=== PATIENT | male | born 1940 | race Caucasian/White ===

== ENCOUNTER 2016-08-10 09:08 | Observation (INO) | payer OTHER ==
[2016-08-10] MEDS ORDERED: NS 1,000 ML IV ONE (09:16)
[2016-08-10] MEDS ORDERED: diphenhydrAMINE 25 MG CAP PO ONE ×2 (09:16→09:35)
[2016-08-10] MEDS ORDERED: ASPIRIN EC 325 MG TAB PO ONE ×2 (09:16→09:35)
[2016-08-10] MEDS ORDERED: DIAZEPAM 5 MG TAB PO ONE (09:16)
[2016-08-10] MEDS ORDERED: FAMOTIDINE 20 MG TAB PO ONE (09:16)
--- NOTE | 2016-08-10 09:34 | CPEKG ---
Heart Rate: 61 RR Interval: 984 P-R Interval: 152 QRSD Interval: 88 QT Interval: 404 QTC Interval: 407 P [place]: 63 QRS [place]: 40 T Wave [place]: 42 EKG Severity - NORMAL ECG - EKG Impression: SINUS RHYTHM Electronically Signed By: Alex Brown 10-Aug-2016 17:39:55
[2016-08-10] MEDS ORDERED: DIAZEPAM 5 MG TAB ONE (09:35)
[2016-08-10] MEDS ORDERED: FAMOTIDINE 20 MG TAB ONE (09:35)
[2016-08-10 09:49] LABS: % IMMATURE GRANULYOCYTES 0.2 % (0.0-1.1); ABSOLUTE IMMATURE GRANULOCYTES 0.01 10^3/uL (0.00-0.10); ADD DIFF? NO; ADD MORPH? NO; ADD SCAN? NO; ATYPICAL LYMPHOCYTE FLAG 10 (0-99); FRAGMENT RBC FLAG 0 (0-99); HEMATOCRIT 44.9 % (40.0-51.0); HEMOGLOBIN 15.8 g/dL (13.7-17.5); LEFT SHIFT FLG 0 (0-99); LIPEMIA HEMOLYSIS FLAG 90 (0-99); MEAN CELL HEMOGLOBIN 32.3 pg (27.9-34.1); MEAN CELL HEMOGLOBIN CONCENTR. 35.2 g/dL (32.4-36.7); MEAN CELL VOLUME 91.8 fL (81.5-99.8); MEAN PLATELET VOLUME 10.9 fL (8.7-11.7); PLATELET CLUMPS FLAG 10 (0-99); PLATELET COUNT 207 10^3/uL (150-400); RED BLOOD CELL COUNT 4.89 10^6/uL (4.40-6.38); RED CELL DISTRIBUTION WIDTH 13.2 % (11.5-15.2)
[2016-08-10 09:57] LABS: INR 1.12 (0.83-1.16); PROTIME(PATIENT) 14.3 SEC (12.0-15.0)
[2016-08-10 10:21] LABS: ANION GAP 9 mEq/L (8-16); CALCIUM 8.7 mg/dL (8.5-10.4); CARBON DIOXIDE 26 mEq/l (22-31); CHLORIDE 103 mEq/L (97-110); CHOLESTEROL 175 mg/dL (140-220); CREATININE 0.8 mg/dL (0.7-1.3); GLOMERULAR FILTRATION RATE > 60; GLUCOSE 87 mg/dL (70-100); HIGH DENSITY LIPOPROTEIN 53 mg/dL (40-65); LDL/HDL RATIO 2.09 RATIO (1.00-3.64); LOW DENSITY LIPOPROTEIN 111 mg/dL (80-100); NON-HIGH DENSITY LIPOPROTEIN 122 mg/dL (90-129); POTASSIUM 4.7 mEq/L (3.5-5.2); SODIUM 138 mEq/L (134-144); TRIGLYCERIDE 55 mg/dL (40-150); VERY LOW DENSITY LIPOPROTEINS 11 mg/dL (8-25)
[2016-08-10] MEDS ORDERED: LIDOCAINE 1% 30 ML SDV ONE (10:46)
[2016-08-10] MEDS ORDERED: MIDAZOLAM 2 MG/2 ML VIAL ONE ×2 (10:47→11:53)
[2016-08-10] MEDS ORDERED: VERAPAMIL 5 MG/2 ML VIAL ONE (10:47)
[2016-08-10] MEDS ORDERED: IOPAMIDOL (ISOVUE-370) 150 ML BTL IV ONE ×3 (10:47→11:35)
[2016-08-10] MEDS ORDERED: fentaNYL 100 MCG/2 ML INJ ONE (10:47)
[2016-08-10] MEDS ORDERED: HEPARIN 10,000 UNIT/10 ML MDV ONE (10:47)
[2016-08-10] MEDS ORDERED: NITROGLYCERIN 1,500 MCG/15 ML VIAL MISC ONE (11:34)
[2016-08-10] MEDS ORDERED: PRASUGREL HCL 10 MG TAB ONE (11:53)
[2016-08-10] MEDS ORDERED: NITROGLYCERIN 0.4 MG BTL SL PRN (12:25)
[2016-08-10] MEDS ORDERED: ACETAMINOPHEN 325 MG TAB PO PRN (12:25)
[2016-08-10] MEDS ORDERED: PRASUGREL HCL 10 MG TAB PO ONE (12:25)
[2016-08-10] MEDS ORDERED: ATROPINE SULFATE 1 MG/10 ML SYR IVP PRN (12:25)
[2016-08-10] MEDS ORDERED: LORazepam 2 MG/ML INJ IVP PRN (12:25)
[2016-08-10] MEDS ORDERED: ONDANSETRON 4 MG/2 ML VIAL IVP PRN (12:25)
[2016-08-10] MEDS ORDERED: TEMAZEPAM 15 MG CAP PO PRN (12:25)
[2016-08-10] MEDS ORDERED: HYDROCODONE/APAP 5/325 TAB PO PRN (12:25)
[2016-08-10] MEDS ORDERED: NS 1,000 ML IV SCH (12:30)
--- NOTE | 2016-08-10 12:46 | PDDXCAT ---
Diagnostic Cath Note - . 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 LAD: Mild irregularites. LCX: Mild irregularities. RCA: Diffuse moderate disease proximal to mid up to 50 to 60%; focal 80% mid to distal. LVEF: 65% Wall motion: Normal. Estimated blood loss: <50ml Closure method: TR Band Assessment: 1) Normal LV systolic function. 2) CAD as described above. 3) Successful PCI of the RCA using two drug-coated stents. Intervention: Based on the patient's clinical history and diagnostic angiograms, the decision was made to perform PCI of the RCA. The patient received 3000 units of intravenous heparin in addition to the 5000 units given at the beginning of the procedure. A 5 [place] JR 4 guide catheter was advanced to the RCA ostium. An Intuition guidewire was advanced to the distal portion of the RCA. A series of pre-dilatation inflations was performed from the mid to distal RCA all the way back to the proximal RCA using a 3.0 x 20 mm Emerge balloon. A 3.5 x 38 Synergy stent was advanced into position encompassing the mid to distal RCA back to the mid-RCA. The stent was deployed at high pressure. A 3.5 x 32 mm Synergy stent was then advanced into position spanning the mid-RCA back to the proximal RCA with slight overlap with the first stent. The second stent was deployed at high pressure. Finally, a series of post-dilatation inflations was performed throughout the stented segment using a 3.5 x 20 mm NC Emerge balloon. Final angiograms demonstrated 0% residual stenosis and JUANJO-III flow.
--- NOTE | 2016-08-10 14:31 | CPEKG ---
Heart Rate: 47 RR Interval: 1277 P-R Interval: 164 QRSD Interval: 88 QT Interval: 460 QTC Interval: 407 P [place]: 45 QRS [place]: 19 T Wave [place]: 38 EKG Severity - OTHERWISE NORMAL ECG - EKG Impression: SINUS BRADYCARDIA EKG Impression: LOW VOLTAGE IN FRONTAL LEADS Electronically Signed By: Alex Brown 10-Aug-2016 17:39:45
[2016-08-10] MEDS: FAMOTIDINE 20 MG TAB PO SCH (21:33)
[2016-08-11 04:53] VITALS: RESP 16; O2SAT 93
[2016-08-11 05:01] LABS: % IMMATURE GRANULYOCYTES 0.1 % (0.0-1.1); ABSOLUTE IMMATURE GRANULOCYTES 0.01 10^3/uL (0.00-0.10); ADD DIFF? NO; ADD MORPH? NO; ADD SCAN? NO; ATYPICAL LYMPHOCYTE FLAG 0 (0-99); FRAGMENT RBC FLAG 0 (0-99); HEMATOCRIT 41.7 % (40.0-51.0); HEMOGLOBIN 14.8 g/dL (13.7-17.5); LEFT SHIFT FLG 0 (0-99); LIPEMIA HEMOLYSIS FLAG 90 (0-99); MEAN CELL HEMOGLOBIN 32.6 pg (27.9-34.1); MEAN CELL HEMOGLOBIN CONCENTR. 35.5 g/dL (32.4-36.7); MEAN CELL VOLUME 91.9 fL (81.5-99.8); MEAN PLATELET VOLUME 10.8 fL (8.7-11.7); PLATELET CLUMPS FLAG 20 (0-99); PLATELET COUNT 181 10^3/uL (150-400); RED BLOOD CELL COUNT 4.54 10^6/uL (4.40-6.38); RED CELL DISTRIBUTION WIDTH 13.2 % (11.5-15.2)
[2016-08-11 05:16] LABS: ALBUMIN 2.9 g/dL (3.5-5.0); ANION GAP 7 mEq/L (8-16); ASPARTATE AMINOTRANSFERASE 18 IU/L (17-59); BILIRUBIN,TOTAL 1.5 mg/dL (0.1-1.4); CALCIUM 8.2 mg/dL (8.5-10.4); CARBON DIOXIDE 23 mEq/l (22-31); CHLORIDE 108 mEq/L (97-110); CREATININE 0.7 mg/dL (0.7-1.3); GLOMERULAR FILTRATION RATE > 60; GLUCOSE 81 mg/dL (70-100); LACTATE DEHYDROGENASE 327 IU/L (313-618); MAGNESIUM 1.9 mg/dL (1.6-2.3); POTASSIUM 4.4 mEq/L (3.5-5.2); SODIUM 138 mEq/L (134-144)
[2016-08-11 07:40] VITALS: BP 139/74; PULSE 71; TEMP 97.3
[2016-08-11] MEDS ORDERED: ASPIRIN EC 81 MG TAB PO ONE (08:29)
[2016-08-11] MEDS: FAMOTIDINE 20 MG TAB PO SCH (08:34)
[2016-08-11] MEDS ORDERED: OMEGA-3 FATTY ACIDS 1,000 MG CAP PO SCH (09:00)
[2016-08-11] MEDS ORDERED: ASPIRIN EC 81 MG TAB PO SCH (09:00)
[2016-08-11] MEDS ORDERED: ASPIRIN EC 325 MG TAB PO SCH (09:00)
[2016-08-11] MEDS ORDERED: PRASUGREL HCL 10 MG TAB PO SCH (09:00)
--- NOTE | 2016-08-11 09:22 | CPEKG ---
Heart Rate: 71 RR Interval: 845 P-R Interval: 148 QRSD Interval: 80 QT Interval: 364 QTC Interval: 396 P [place]: 73 QRS [place]: 49 T Wave [place]: 57 EKG Severity - OTHERWISE NORMAL ECG - EKG Impression: SINUS RHYTHM EKG Impression: LOW VOLTAGE IN FRONTAL LEADS Electronically Signed By: Alex Brown 11-Aug-2016 16:44:49
--- NOTE | 2016-08-11 11:22 | GDS ---
[f rep st] DISCHARGE SUMMARY REASON FOR ADMISSION: Coronary artery disease. HOSPITAL COURSE: Please refer to my recent office note which has been placed on the chart. Also refer to the cardiac catheterization report from yesterday. Briefly, The patient is a 76-year-old male with a history of CAD, having undergone a PCI to the RCA 10 years ago. 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 He has not been experiencing any cardiac symptoms. His exercise stress test demonstrated good exercise tolerance for his age, going 10 minutes of the Marshal protocol and reaching 110% PHR. His ECG did demonstrate downsloping ST-segment depression in the inferior leads. He did not have any symptoms of chest discomfort. The nuclear perfusion images were notable for an inferoseptal reversible defect. Additionally, he had a 5-beat run of nonsustained ventricular tachycardia during the recovery phase. 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 I saw him in the office in July and in an effort to clarify his cardiac status, the decision was made to schedule cardiac catheterization. That procedure was performed yesterday. He had normal left ventricular systolic function with ejection fraction of 65%. The LAD and circumflex demonstrated minimal luminal irregularities. The right coronary artery had diffuse moderate disease from its proximal to mid portions and in the mid to distal vessel there was a focal 80% stenosis. Based on his angiographic results, the decision was made to perform percutaneous coronary intervention of the RCA. He received 2 Synergy stents measuring 3.5 x 38 mm and 3.5 x 32 mm spanning the proximal RCA to the mid to distal vessel. The angiographic outcome was excellent. Overnight, the patient has had no complications at his right radial catheterization site. He is feeling well this morning and is ready for discharge. RECOMMENDATIONS AND DISPOSITION: The patient is discharged in stable condition. He should continue his usual heart healthy dietary and exercise habits. He will take low-dose aspirin and Effient as his dual anti-platelet therapy. Genetic testing was sent this morning to determine whether or not he will metabolize clopidogrel adequately. If so, he will be transitioned to this medication in the outpatient setting. He is not on any cardioactive medications. He does not have a history of hypertension. His total cholesterol was 175 with HDL 53, LDL 111, and triglycerides 55. He has tried several statins in the past but always developed musculoskeletal side effects. 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 Presumably this means the medication in question is lovastatin. The patient will be provided with a prescription for lovastatin 20 mg daily. I also suggested that he take 200 mg of Coenzyme Q10 daily. My office staff has been instructed to contact the patient to arrange followup in the near future. We will also perform a 30-day CardioNet monitor to assess for any episodes of ventricular arrhythmias. DISCHARGE DIAGNOSES: 1. Coronary artery disease. 2. Status post successful percutaneous coronary intervention of the RCA utilizing 2 drug coated stents. Copy requested to: Dr. Eagle Scott /[id number]
[2016-08-13 23:30] LABS: 2C19S INTERPRETATION See Comments (())
== END 2016-08-11 11:14 | disposition home or self-care (01) ==
LOC: FCATH 09:08 → F2W 12:25
PROVIDERS: ADMIT Internal Medicine Interventional Cardiology; ATTEND Internal Medicine Interventional Cardiology
PROC: 027035Z Dilation of Coronary Artery, One Artery with Two Drug-eluting Intraluminal Devices, Percutaneous Approach (ICD-10-PCS; principal; 2016-08-10)
PROC: B2151ZZ Fluoroscopy of Left Heart using Low Osmolar Contrast (ICD-10-PCS; principal; 2016-08-10)
PROC: 4A023N7 Measurement of Cardiac Sampling and Pressure, Left Heart, Percutaneous Approach (ICD-10-PCS; principal; 2016-08-10)
PROC: B2111ZZ Fluoroscopy of Multiple Coronary Arteries using Low Osmolar Contrast (ICD-10-PCS; principal; 2016-08-10)
DX: I25.10 Atherosclerotic heart disease of native coronary artery without angina pectoris (principal)
CPT/HCPCS: 93005; 93458; C1725; C1769; C1874; C1887; C9600; G0378; J1644; J2250; J3010; Q9967; 81225-90